=== PATIENT | female | born 1965 | race Caucasian/White ===

== ENCOUNTER 2016-12-05 22:16 | Emergency (ER) | payer SELFPAY ==
[~2016-12-05] VITALS: Ht 160 cm; Wt 103.8 kg
[2016-12-05 22:18] VITALS: BP 146/84
[2016-12-06] MEDS ORDERED: HYDROcodone/APAP 5/325 TABLET ONE (00:18)
[2016-12-06] MEDS ORDERED: ONDANSETRON ODT 4 MG ONE (00:18)
== END 2016-12-06 10:08 | disposition home or self-care (01) ==
LOC: ED 12-06 03:08
DX: S16.1XXA Strain of muscle, fascia and tendon at neck level, initial encounter (principal); S29.012A Strain of muscle and tendon of back wall of thorax, initial encounter; M25.512 Pain in left shoulder; G89.11 Acute pain due to trauma; Z88.6 Allergy status to analgesic agent; W10.9XXA Fall (on) (from) unspecified stairs and steps, initial encounter; Y93.89 Activity, other specified; Y99.8 Other external cause status; Y92.89 Other specified places as the place of occurrence of the external cause
CPT/HCPCS: 70450; 72072; 72125